=== PATIENT | female | born 1970 | race Caucasian/White ===

== ENCOUNTER 2024-10-16 10:03 | Outpatient (CLI) | payer BC, SELFPAY ==
--- NOTE | 2024-10-16 10:15 | MR_ITS ---
[address] [address] Phone:?[phone] Fax:?[phone] Referring Physician Information: Dg Jensen [address] [facility] [address] Phone:?[phone] Fax:?[phone] Patient:Chan Hamilton D.O.B:?1970 Sex:?Female Phone:?[phone] [facility] MRN:?[id number] Exam Date:?10/16/2024 EXAM: MRI of the LEFT SHOULDER, without contrast CLINICAL INFORMATION: Female, 54 years old, with left shoulder pain. INDICATION: Evaluate for rotator cuff tear. PRIOR SURGERY: None reported. PLAIN FILMS: None available. COMPARISONS: No prior MRIs available. TECHNICAL INFORMATION: Using a 1.5T MR scanner and a localizing surface coil: coronal obliques: PD, T2, STIR sagittal obliques: PD, T2 axials: PD, T2 SEDATION: None CONTRAST: None FINDINGS: Bones: Proximal humerus: No fracture or marrow edema/pathology. No humeral Hill-Sachs or reverse Hill-Sachs lesion/impaction or contusion. Glenoid: No fracture or marrow edema/pathology. No osseous Bankart lesion. Rotator cuff and muscles/tendons: Supraspinatus: Mild supraspinatus tendinopathy, without tear or muscle atrophy. Infraspinatus: No tendinopathy, tear or atrophy. Teres minor: No tendinopathy, tear or atrophy. Subscapularis: Mild tendinopathy of the superior distal subscapularis, without tendon tear or muscle atrophy. Deltoid: No strain or atrophy. Coracoacromial arch: Acromion morphology: The acromion has type II morphology. No discrete subacromial osseous spur or os acromiale. Acromiohumeral space: The acromiohumeral space measures 5.1 mm at its narrowest point. Coracohumeral space: The coracohumeral space is within normal limits. Acromioclavicular joint: Joint: Mild-moderate AC joint arthropathy, which effaces the underlying supraspinatus. Ligaments: Coracoclavicular ligaments are intact. Bursae: Subacromial-subdeltoid: Mild subacromial-subdeltoid bursitis. Subcoracoid: No convincing subcoracoid bursal thickening/bursitis. Biceps tendon: The long head of the biceps tendon is present within the bicipital groove. The intra-articular and extra-articular segments are intact without tendinosis, tenosynovitis, or displacement. Glenohumeral joint: Effusion/cyst: No significant glenohumeral joint effusion. Articular cartilage: Humeral head: Mild thinning of the articular cartilage along the medial aspect of the humeral head, with mild inferomedial marginal osteophytosis. Glenoid: Mild-moderate thinning of the glenoid articular cartilage, with mild marginal osteophytosis. Loose bodies: A 6 x 4 x 5 mm intra-articular body in the subscapularis recess. Labrum:?Circumferential degeneration and fraying of the labrum, without more well-defined labral tear. No paralabral cyst. Inferior glenohumeral ligament/axillary pouch:?Mild-moderate thickening of the inferior capsuloligamentous structures (coronal PD series 6 images 13-19). Additionally, there is soft tissue thickening throughout the rotator interval (sagittal PD series 8 images 11-16). IMPRESSION: 1. Mild supraspinatus & subscapularis tendinopathy. No rotator cuff tendon tear. 2. Mild osteoarthritis of the glenohumeral joint with 6 x 4 x 5 mm intra- articular body. 3. Findings in keeping with adhesive capsulitis. 4. Mild narrowing of the acromiohumeral space with mild subacromial-subdeltoid bursitis. Additionally, there is mild-moderate AC joint arthropathy, which effaces the underlying supraspinatus. 5. Circumferential degeneration and fraying of the labrum, which is of doubtful clinical significance. 6. No tendinopathy, displacement, or tear of the biceps long head tendon. BC Electronically signed on 10/16/2024 2:34:00 PM by Jose Sawyer M.D.
== END 2024-10-16 10:04 | disposition home or self-care (01) ==
PROVIDERS: PCP Physician Assistant; Visit Provider Physician Assistant Surgical
DX: M25.512 Pain in left shoulder (principal); M19.012 Primary osteoarthritis, left shoulder; M75.02 Adhesive capsulitis of left shoulder; M75.52 Bursitis of left shoulder
CPT/HCPCS: 73221